=== PATIENT | male | born 1985 | race Caucasian/White ===

== ENCOUNTER 2016-10-27 17:00 | Inpatient (IN) | payer SELFPAY ==
[~2016-10-27] VITALS: Ht 165.1 cm; Wt 135.7 kg
[~2016-10-27 17:00] MED LIST: IOHEXOL-350 100 ML BOTTLE ONE; SODIUM CHLORIDE 0.9% 10ML VIAL ONE
[2016-10-27] MEDS ORDERED: ASPIRIN 81MG TABLET PO STA (17:38)
[2016-10-27] MEDS ORDERED: CLONIDINE 0.2MG TABLET PO ONE (17:45)
[2016-10-27] MEDS: NITROGLYCERIN 0.4MG TABLET SL SL PRN ×3 (17:50→18:18)
[2016-10-27 18:18] LABS: BASOPHILS % 0.7 % (0.0-2.0); EOSINOPHILS % 3.2 % (0.0-5.0); HEMATOCRIT. 39.6 % (42.0-52.0); HEMOGLOBIN. 13.4 g/dL (14.0-18.0); LYMPHOCYTES % 13.7 % (20.0-50.0); MEAN CORPUSCULAR HEMOGLOBIN 27.3 pg (28.0-32.0); MEAN PLATELET VOLUME 7.9 fl (7.4-10.4); MONOCYTES % 5.6 % (2.0-8.0); NEUTROPHILS % 76.8 % (40.0-76.0); PLATELET 372 x1000/uL (130-400); RED BLOOD CELL COUNT 4.89 mill/uL (4.7-6.1)
[2016-10-27 18:20] LABS: CHLORIDE 105 mEq/L (98-107)
[2016-10-27 18:23] LABS: D-DIMER 0.66 mg/L FEU (<0.50); PARTIAL THROMBOPLASTIN TIME 27.7 sec (24.0-34.0); PROTHROMBIN TIME 10.6 sec
[2016-10-27 18:29] LABS: CARBON DIOXIDE 25 mEq/L (21-32); TROPONIN I 0.06 ng/mL (0.00-0.04)
[2016-10-27] MEDS ORDERED: LEVOFLOXACIN 750MG PREMIX 150 ML IV ONE (18:45)
[2016-10-27] MEDS ORDERED: HYDRALAZINE 20MG/ML VIAL IV ONE (20:00)
[2016-10-27] MEDS ORDERED: LORAZEPAM 2MG/ML CPJ IV PRN (20:00)
[2016-10-27] MEDS ORDERED: ACETAMINOPHEN 325MG TABLET PO PRN (20:00)
[2016-10-27] MEDS ORDERED: NITROGLYCERIN 0.4MG TABLET SL SL PRN (20:00)
[2016-10-27] MEDS ORDERED: IPRATROPIUM/ALBUTEROL 0.5-3(2.5)MG/3ML NEB INH PRN (20:00)
[2016-10-27] MEDS ORDERED: MAGNESIUM/ALUMINUM HYDROXIDE/SIMETHICONE 30ML UDC PO PRN (20:00)
[2016-10-27] MEDS ORDERED: GUAIFENESIN 200MG/10ML SUGAR FREE UDC PO PRN (20:00)
[2016-10-27] MEDS ORDERED: ONDANSETRON HCL 4MG/2ML VIAL IV PRN (20:00)
[2016-10-27] MEDS ORDERED: DOCUSATE SODIUM 100MG CAPSULE PO PRN (20:00)
[2016-10-27] MEDS ORDERED: DIPHENHYDRAMINE 50MG/ML VIAL IV PRN (20:00)
[2016-10-27] MEDS ORDERED: KETOROLAC 15MG/ML VIAL IV PRN (20:30)
[2016-10-27] MEDS ORDERED: NA PHOS,M-B/NA PHOS,DI-BA ENEMA 118ML PR PRN (21:00)
[2016-10-27] MEDS ORDERED: ZOLPIDEM TARTRATE 5MG TABLET PO PRN (21:00)
[2016-10-27] MEDS: HYDROCHLOROTHIAZIDE 25MG TABLET PO SCH (21:55)
[2016-10-27 22:30] VITALS: BP_SYST 184; BP_SYST 199; BP_DIAS 129; BP_DIAS 149
[2016-10-27] MEDS ORDERED: HYDR25TA PO (23:09)
[2016-10-27] MEDS: CLONIDINE 0.1MG TABLET PO PRN (23:44)
[2016-10-27] MEDS: LISINOPRIL 20MG TABLET PO SCH (23:45)
[2016-10-28] VITALS: BP 186/141
[2016-10-28 00:12] LABS: CREATINE KINASE MB FRACTION 1.6 ng/mL (0.5-3.6); TROPONIN I 0.06 ng/mL (0.00-0.04)
[2016-10-28] MEDS: CLONIDINE 0.1MG TABLET PO PRN ×2 (05:26→12:11)
[2016-10-28 05:37] LABS: *AMPHETAMINES SCREEN URINE PRESUMTIVE POSITIVE (NEGATIVE); *BARBITURATES SCREEN URINE NEGATIVE (NEGATIVE); *BENZODIAZEPINES SCREEN URINE NEGATIVE (NEGATIVE); *COCAINE SCREEN URINE NEGATIVE (NEGATIVE); CANNABINOID URINE SCREEN NEGATIVE (NEGATIVE); METHADONE URINE SCREEN NEGATIVE (NEGATIVE); OPIATES URINE SCREEN NEGATIVE (NEGATIVE); PHENCYCLIDINE URINE SCREEN NEGATIVE (NEGATIVE)
[2016-10-28 08:00] VITALS: BP 153/110
[2016-10-28] MEDS: HYDROCHLOROTHIAZIDE 25MG TABLET PO SCH (08:30)
[2016-10-28] MEDS: LISINOPRIL 20MG TABLET PO SCH (08:30)
[2016-10-28] MEDS ORDERED: PANTOPRAZOLE SODIUM 40 MG/VIAL IV SCH (09:00)
[2016-10-28] MEDS ORDERED: ASPIRIN 325MG EC TABLET PO SCH (09:00)
[2016-10-28 10:11] LABS: CREATINE KINASE MB FRACTION 1.6 ng/mL (0.5-3.6); TROPONIN I 0.03 ng/mL (0.00-0.04)
[2016-10-28 12:00] VITALS: BP 143/111
[2016-10-28 14:37] VITALS: BP 143/111
== END 2016-10-28 16:01 | disposition home or self-care (01) | DRG 194 ==
LOC: ER 18:29 → 5WST 19:57 → EDBEDREQ 20:01
PROVIDERS: ADMIT Internal Medicine; ATTEND Internal Medicine
DX: I11.0 Hypertensive heart disease with heart failure (principal); E44.1 Mild protein-calorie malnutrition; I50.30 Unspecified diastolic (congestive) heart failure; E66.9 Obesity, unspecified; E78.00 Pure hypercholesterolemia, unspecified; R07.89 Other chest pain; Z68.42 Body mass index [BMI] 45.0-49.9, adult; Z87.891 Personal history of nicotine dependence; Z91.14 Patient's other noncompliance with medication regimen; Z71.3 Dietary counseling and surveillance
CPT/HCPCS: 36415; 71010; 71275; 80053; 80061; 80305; 82550; 82553; 83036; 83880; 84484; 85025; 85379; 85610; 85730; 87040; 93005; A4216; C9113; J0360; J1956; Q9967

== ENCOUNTER 2017-10-20 21:54 | Emergency (ER) | payer SELFPAY ==
[~2017-10-20] VITALS: Ht 165.1 cm; Wt 109.0 kg
[~2017-10-20 21:54] MED LIST changes: +HYDR25TA PO; -IOHEXOL-350 100 ML BOTTLE ONE; -SODIUM CHLORIDE 0.9% 10ML VIAL ONE
[2017-10-21] MEDS ORDERED: KETOROLAC 60MG/2ML VIAL IM ONE
[2017-10-21] MEDS ORDERED: LIDOCAINE 5% PATCH TOP SCH
[2017-10-21 01:04] VITALS: BP 202/159
== END 2017-10-21 03:05 | disposition home or self-care (01) ==
LOC: ER 10-21 02:44
DX: M54.5 Low back pain (principal); I10 Essential (primary) hypertension; Z91.14 Patient's other noncompliance with medication regimen; Z71.89 Other specified counseling; E78.00 Pure hypercholesterolemia, unspecified; E66.9 Obesity, unspecified; Z68.41 Body mass index [BMI] 40.0-44.9, adult; F17.210 Nicotine dependence, cigarettes, uncomplicated
CPT/HCPCS: 96372; 99283; J1885